=== PATIENT | male | born 1970 | race Two or more races ===

== ENCOUNTER → 2025-02-20 | Outpatient (CLI) | payer MEDICAID, SELFPAY ==
--- NOTE | 2025-02-20 08:44 | XR_ITS ---
EXAMINATION: Ankle, right 3 views. Technique: Ankle AP, oblique, lateral 3 views Date and time of exam: February 20, 2025, 0858 hours INDICATIONS: Right ankle pain 1 month. FINDINGS: Mild osteopenia. No fracture or dislocation. 6 mm posterior bony calcaneal spur. Mild osteoarthritis tibiotalar joint IMPRESSION: Mild osteoarthritis tibiotalar joint
--- NOTE | 2025-02-20 08:44 | XR_ITS ---
Examination: Foot, right, 3 views Technique: AP, oblique, lateral views foot, 3 views Date and time of exam: February 20, 2025, 0858 hours INDICATIONS: Pain along the inferior aspect of the foot 1 month. FINDINGS: Mild narrowing first metatarsophalangeal joint No fracture or dislocation Small posterior bony calcaneal spur Mild osteoarthritis tibiotalar joint IMPRESSION: Mild osteoarthritis tibiotalar joint
== END | disposition home or self-care (01) ==
PROVIDERS: PCP Nurse Practitioner Family; Referring Provider Nurse Practitioner Family; Visit Provider Nurse Practitioner Family
DX: M19.071 Primary osteoarthritis, right ankle and foot (principal)
CPT/HCPCS: 73610; 73630